=== PATIENT | male | born 1975 | race Caucasian/White ===

== ENCOUNTER 2019-06-27 14:30 | Outpatient (RCR) | payer BC, SELFPAY | END 2019-06-27 14:35 | disposition home or self-care (01) | LOC: PT 14:30 | DX: M22.2X1 Patellofemoral disorders, right knee (principal); M22.2X2 Patellofemoral disorders, left knee | CPT/HCPCS: 97010; 97014; 97033; 97035; 97110; 97140; 97163; G0283 ==